=== PATIENT | male | born 1995 | race Caucasian/White ===

== ENCOUNTER 2017-06-17 05:49 | Emergency (ER) | payer BC ==
[~2017-06-17] VITALS: Ht 177.8 cm; Wt 77.5 kg
[~2017-06-17 05:49] MED LIST: GUAISYP4 PO; IBUP-1050 PO; PSEU30TA20 PO
[2017-06-17 05:50] VITALS: TEMP 36.4; Ht 177.8 cm; Wt 77.5 kg
--- NOTE | 2017-06-17 06:12 | EMERGENCY ROOM VISIT NOTE ---
History Report prepared by Jesica: Ananth Garcia Under the Supervision of: Dr. Katey Carr D.O. First contact with patient: 05:50 Stated Complaint: ALCOHOL History of Present Illness The patient is a 21 year old male who presents to the Emergency Room for an alcohol overdose occurring prior to arrival. Per the EMS, the patient was found asleep on someone else's couch this morning, and he was then picked up by the police. The patient states that he was drinking Bacardi, and then he was drinking at the bars downtown. He denies using any drugs, and he denies any medical problems. Source of History: patient History Limited By: intoxication Onset: prior to arrival Position: other (global) Quality: other (alcohol overdose) Review of Systems See HPI for pertinent positives & negatives. A total of 10 systems reviewed and were otherwise negative. Past Medical & Surgical Limited secondary to intoxication Family History Limited secondary to intoxication Social History Smoking Status: Never Smoker Marital Status: single Occupation Status: [employer] student Current/Historical Medications No Active Prescriptions or Reported Meds Allergies Coded Allergies: No Known Allergies (Unverified , 07/23/16) Physical Exam Vital Signs Date Time Temp Pulse Resp B/P (MAP) Pulse Ox O2 Delivery O2 Flow Rate FiO2 06/17/17 10:03 85 18 132/44 93 06/17/17 09:15 85 18 132/44 93 Room Air 06/17/17 07:32 74 18 126/82 96 Room Air 06/17/17 06:45 65 14 99 06/17/17 06:16 70 06/17/17 06:01 105/72 06/17/17 06:00 62 16 100 06/17/17 05:50 36.4 76 19 131/80 100 Room Air Physical Exam Gen.: The patient is cooperative. He does smell of alcohol. He is slightly slurring his words. HEENT: Head - normocephalic and atraumatic Pupils are equal, round, and reactive to light. Extraocular eye muscles are intact, and sclera are anicteric. Nose - moist nasal mucosa without discharge. Mouth - moist buccal mucosa. The patient appears to have sauce around his mouth. Oropharynx is nonerythematous and there is no tonsillar exudate or edema noted. Neck: Supple; no JVD, nuchal rigidity, cervical lymphadenopathy. Heart: Regular rate and rhythm. There is a normal S1 and S2 with no murmurs, clicks, or gallops appreciated. Lungs: Clear to auscultation bilaterally with no wheezes, rales, or rhonchi. Abdomen: Soft, completely nontender, nondistended, with good bowel sounds. There are no palpable pulsatile masses or hepatosplenomegaly. There is no guarding, rigidity, or rebound noted. Extremities: No evidence of cyanosis, clubbing, or edema. There are easily palpable peripheral pulses. Skin: warm and dry with good turgor and no rashes. Medical Decision & Procedures Laboratory Results 06/17/17 06:06 Test 06/17/17 06:06 Anion Gap 6.0 mmol/L (3-11) Est Creatinine Clear Calc Drug Dose 120.7 ml/min Estimated GFR () 124.1 Estimated GFR (Non- 107.1 BUN/Creatinine Ratio 16.1 (10-20) Calcium Level 8.9 mg/dl (8.5-10.1) Chemistry Specimen Hemolysis Ethyl Alcohol mg/dL 193.0 mg/dl (0-3) Laboratory results per my review. ED Course 0550: Past medical records reviewed. The patient was evaluated in room B4. A complete history and physical exam was performed. Laboratory studies were drawn as above. The patient was placed in the prone position to avoid aspiration. He was observing the research geologist and pulse oximeter. 0710: I reevaluated the patient, and he was fully awake and requesting discharge , but he has no sober friends or phone to call anyone. 0800: The patient is fully awake and hemodynamically stable at this time. He will be discharged shortly on his own as he seems sober. Medical Decision The patient is a 21 year old male who presents to the ED for an alcohol overdose. Differential diagnosis includes alcohol overdose, drug intoxication, hypoglycemia, and head injury. Lab results show: Normal renal function, glucose of 106, and alcohol of 193 This is a 21-year-old male patient who consumed too much alcohol this evening. Unfortunately, he was found sleeping on someone else's couch and police were called. The patient denies any trauma. He has no complaints of pain. He has no past medical history. He was kept in the emergency department until he was more sober and then discharged home. He was encouraged to avoid such excessive alcohol use in the future. Medication Reconcilliation Current Medication List: was personally reviewed by me Blood Pressure Screening Patient's blood pressure: Normal blood pressure Impression Primary Impression: Alcohol overdose Scribe Attestation The scribe's documentation has been prepared under my direction and personally reviewed by me in its entirety. I confirm that the note above accurately reflects all work, treatment, procedures, and medical decision making performed by me. Departure Information Dispostion Still a Patient Prescriptions No Active Prescriptions or Reported Meds Referrals No Doctor, Assigned (PCP) Problem Qualifiers Primary Impression: Alcohol overdose Encounter type: initial encounter Injury intent: accidental or unintentional Qualified Codes: T51.91XA - Toxic effect of unspecified alcohol , accidental (unintentional), initial encounter
[2017-06-17 06:47] LABS: BUN/CREATININE RATIO 16.1 (10-20); CALCIUM 8.9 mg/dl (8.5-10.1); POTASSIUM 4.1 mmol/L (3.5-5.1)
[2017-06-17 10:03] VITALS: BP 132/44; PULSE 85; O2SAT 93
== END 2017-06-17 10:05 | disposition home or self-care (01) ==
LOC: EDBD 05:49 → C.EDB 05:50
DX: T51.91XA Toxic effect of unspecified alcohol, accidental (unintentional), initial encounter (principal)